=== PATIENT | male | born 1995 | race Two or more races ===

== ENCOUNTER 2018-08-03 05:13 | Day surgery (SDC) | payer OTHER ==
[~2018-08-03] VITALS: Ht 172.7 cm; Wt 78.0 kg
[2018-08-03 07:22] VITALS: BP 116/57; Ht 172.7 cm; Wt 78.0 kg
--- NOTE | 2018-08-03 10:25 | NUR ---
OPA OUT AT THIS TIME
--- NOTE | 2018-08-03 11:10 | NUR ---
REC'D FROM [facility] ACCOMPANIED BY [facility] OFFICERS. DRESSING WITH SMALL AMOUNT OF DRAINAGE ON INNER DRESSING. ICE WATER BROUGHT TO PATIENT.
--- NOTE | 2018-08-03 12:20 | NUR ---
AMBULATED TO BATHROOM AND VOIDED WITHOUT DIFFICULTY.
--- NOTE | 2018-08-03 12:30 | NUR ---
IV DC'D WITH CATHETER INTACT. WRITTEN AND VERBAL DC INST. GIVEN TO [facility] OFFICER ALONG WITH RX. VERBALIZED UNDERSDTANDING.
--- NOTE | 2018-08-03 12:40 | NUR ---
DC'D TO CORRECTIONAL FACILITY VIA FACILITY VEHICLE ACCOMPANIED BY [facility] OFFICERS. STABLE AT TIME OF DC,
--- NOTE | 2018-08-03 16:58 | OP ---
PATIENT NAME: BRANDIE BHAGAT MEDICAL RECORD: [id number] :97 LOCATION:D.OPS ADMISSION DATE: SURGEON: NELSON GUERRERO MD DATE OF OPERATION: 08/03/2018 PREOPERATIVE DIAGNOSIS: Symptomatic left inguinal hernia. POSTOPERATIVE DIAGNOSES: Symptomatic indirect left inguinal hernia, also left cord lipoma. PROCEDURES: 1. Open indirect left inguinal hernia repair with bilayer preperitoneal polypropylene mesh. 2. Excision of left cord lipoma. SURGEON: Nelson Guerrero MD LINING MECHANIC: None. BLOOD LOSS: Minimal. ANESTHESIA: General. COMPLICATIONS: None. The risks, possible complications and alternatives to the procedure were explained to the patient. He elects to proceed. Discussion specifically included, but was not limited to, bleeding requiring emergency reoperation, infection, intestinal injury as well as injury to the testicular artery or vein or chronic pain. I specifically discussed with the patient that mesh would be used and I discussed where the mesh would be placed. OPERATIVE COURSE: The patient was conveyed to the operating room electively on 08/03/2018. General anesthesia was induced by the anesthesia staff. The abdomen and genitals were sterilely prepped and draped. A transverse incision was accomplished in the left groin. Sharp dissection was carried down through skin and subcutaneous tissue as well as Omega fascia. External oblique aponeurosis was then sharply cleaned of overlying connective tissue. External oblique aponeurosis was then incised along the direction of its fibers. I bluntly dissected down through the internal oblique and transversus abdominis muscles. A preperitoneal pocket was fashioned bluntly. An indirect hernia was reduced in its entirety. There was no femoral component. No direct component. I ligated the sac highly with a pursestring suture of 3-0 Vicryl. I then transected the sac distal to this. I cut 2 ovals out of polypropylene mesh. The 2 ovals were sutured together, one on top of the other with a running #1 Surgidac. I noted a cord lipoma and this was excised with electrocautery. The mesh was then placed in the preperitoneal space. Once I was satisfied with placement of mesh, I sutured the internal oblique and transversus abdominis muscle layers together with the underlying mesh utilizing multiple interrupted horizontal mattresses of 0 Surgidacs. The external oblique aponeurosis was then closed with running #1 Vicryls. Omega fascia was approximated with interrupted 3-0 Vicryls. The subdermis was approximated with interrupted 3-0 Vicryls. The OPERATIVE REPORT [id number] BRANDEI BHAGAT skin was approximated with a running intracuticular 4-0 Vicryl. The patient was then extubated and conveyed to the post-anesthesia care unit. He likely will require a narcotic analgesia for a few days. I would like him also to take Colace, so that he does not strain while defecating. He should not do any lifting or straining for 3 weeks. That means nothing heavier than a gallon of milk for the next 3 weeks. There is no need for him to follow up with me in the office unless he develops a complication related to this operative procedure. [facility] TRANSINT:[id number] Voice Confirmation ID: [id number] DOCUMENT ID: [id number] cc: Marlene Person, NELSON GUERRERO MD at 1658 CC: MARLENE PERSON [id number] DICTATION DATE: 08/03/18 1151 MOLD CLOSER: 08/03/18 1217 [facility] 08/03/18 [id number] [place] [address]
== END 2018-08-03 12:40 | disposition home or self-care (01) ==
LOC: D.OPS 05:13
PROVIDERS: ATTEND Surgery
DX: K40.90 Unilateral inguinal hernia, without obstruction or gangrene, not specified as recurrent (principal); D17.6 Benign lipomatous neoplasm of spermatic cord; Z01.812 Encounter for preprocedural laboratory examination